=== PATIENT | male | born 1955 | race Caucasian/White ===

== ENCOUNTER 2025-08-28 19:44 | Inpatient (IN) | payer OTHER, MEDICARE, SELFPAY ==
[2025-08-28] VITALS (7 sets, daily range): BP systolic 122–139; BP diastolic 67–80; PULSE 79–106; RESP 18–24; TEMP 37.4–39; O2SAT 92–95; BMI 25.7
--- NOTE | 2025-08-28 20:01 | PD.EDRME ---
Rapid Medical Screening Exam RME Arrival date/time: 08/28/25 19:44 Chief Complaint: Weakness Vital signs: Vital Signs Temperature 102.0 F H 08/28/25 19:58 Pulse Rate 106 H 08/28/25 19:58 Respiratory Rate 24 H 08/28/25 19:58 Blood Pressure 139/80 H 08/28/25 19:58 Pulse Oximetry (%) 92 L 08/28/25 19:58 Oxygen Delivery Method Room Air 08/28/25 19:58 RME Narrative: 70-year-old male with a past medical history of prostate metastatic CA currently on chemo, patient's oncologist is located in [place], he is complaining of lower abdominal pain, nausea vomiting diarrhea and generalized weakness x 2 days. I briefly performed a screening evaluation to initiate work-up and expedite care. Complete history, physical exam, and plan of care is deferred to the provider in the main ED. Exam: Head: Normocephalic, atraumatic. Respiratory: Normal effort. No respiratory distress or accessory muscle use. Neuro: Speech normal. Skin: Warm, dry, normal color. Psych: Pleasant. Normal affect. Cooperative. Clinical Impression: Sepsis
--- NOTE | 2025-08-28 20:03 | EKG_ITS ---
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
--- NOTE | 2025-08-28 20:03 | XR_ITS ---
EXAMINATION: AP chest single view TECHNIQUE: AP portable upright chest single view Date and time: August 28 [id number] hours INDICATIONS: Sepsis protocol sepsis alert today. FINDINGS: Early pneumonia left base Mild enlargement cardiac contour. Median sternotomy wires. No pulmonary edema IMPRESSION: Early pneumonia left base
--- NOTE | 2025-08-28 20:04 | XR_ITS ---
Examination: CT abdomen with intravenous contrast CT pelvis with intravenous contrast 2-D coronal reconstructions 2-D sagittal reconstructions Date and time of exam: August 28, 2025 9:57 p.m., comparison May 15, 2009 INDICATIONS: Incontinence lower abdominal pain chills fever, undergoing chemotherapy, sepsis protocol. CTDI: vol (mGy) 9.81 DLP: (mGycm) 677 Technique: Multiple axial sections of the abdomen and pelvis have been obtained. 64 slice high-resolution scanner used. 3 mm axial sections have been obtained, post intravenous injection 30 cc [id number] 2-D sagittal, coronal reconstructions obtained. Low dose protocols were performed. One or more of the following dose reduction techniques were used; automated exposure control, adjustment of the mA and/or KV according to patient size, use of iterative reconstruction technique. Findings: Multiple liver metastatic lesions, poorly defined on this low contrast study Hepatomegaly 22 cm Spleen is not enlarged Gallbladder is not visualized No pancreatic mass Minimal nodular thickening left adrenal gland Aorta normal size heavy calcification both renal artery origins Perinephric stranding 4.7 cm right renal cyst Mild ascites No pericecal inflammatory change No bowel obstruction Air in the urinary bladder Minimal urinary bladder wall thickening Transverse prostate dimension 5.4 cm Fat-containing inguinal hernias Prominent osteopenia Intact hips IMPRESSION: Hepatomegaly with multiple hepatic metastases Perinephric stranding, consider urinary tract infection No bowel obstruction Mild cystitis pattern
--- NOTE | 2025-08-28 20:15 | PD.EDWEAK ---
ED Weakness RME/HPI General Chief complaint: Weakness Stated complaint: INCONTINENCE, CHILLS, WEAKNESS, LOWER ABD, CHEMO Time Seen by Provider: 08/28/25 20:07 Arrival date/time: 08/28/25 19:44 RME / HPI RME / HPI Narrative: 70-year-old male with a past medical history of prostate metastatic CA currently on chemo, patient's oncologist is located in [place], he is complaining of lower abdominal pain, nausea vomiting diarrhea and generalized weakness x 2 days. I briefly performed a screening evaluation to initiate work-up and expedite care. Complete history, physical exam, and plan of care is deferred to the provider in the main ED. Dr. Matute?s Main ED Evaluation: 70yo male with a history of prostate CA with mets (last chemo on 08/14/25), CAD s/p stent placement, AICD, DM, HTN BIB his presents to the ED for a chief complaint of lower abdominal pain for the last few days. at bedside states she and the patient are visiting from [place]. Patient has had some N/V/D, decreased urination, and increased frequency. No cough. She notes the patient is due for his next dose of chemo on 09/04/25. History is limited due to the patient being a poor historian. Related Data Allergies Allergy/AdvReac Type Severity Reaction Status Date / Time meperidine HCl AdvReac Severe NIGHT Verified 08/28/25 19:47 JOHNSON, ANTSY, COMBATIVE. naproxen AdvReac Unknown Verified 08/28/25 19:47 BLOOD PRESSURE MEDICATION Allergy Uncoded 08/28/25 19:47 Review of Systems Review of Systems ROS Unobtainable: other (limited due to the patient being a poor historian) ED Exam Narrative Physical exam: Generally patient is alert somewhat chronically ill-appearing but in no obvious distress, heart is regular rate and rhythm with occasional extrasystolic beat chest shows a left upper chest AICD to be in place lungs are clear to auscultation equal bilaterally, abdomen is soft bowel sounds present nondistended very mild suprapubic abdominal tenderness without rebound or distention, extremities show no edema, neurologic exam shows Manuel Coma Scale of 15 without focal neurologic deficit Course Course Course Narrative: CXR is ordered for determining the etiology of fever. 2017: Sepsis alert initiated. Orders made at this time are congruent with ED Adult Sepsis Order List. Re-evaluation is to be completed. 2040: NS IVF started. Sepsis re-evaluation pending at the time of admission. Quality Measures Possible source: genitourinary Blood cultures ordered: yes Antibiotic ordered: Yes Pertinent labs: 08/28/25 20:15 Lactic Acid 2.3 H mMol/L (0.4-2.0) Procalcitonin 0.36 ng/ml (0.0-0.49) sepsis Orders Category Date Time Status Bedside Blood Glucose NOW Care 08/28/25 20:03 Active Bedside COVID-19 Antigen Test NOW Care 08/28/25 20:16 Active Bedside Influenza A&B Antigen Test NOW Care 08/28/25 20:[address] Screening NOW Care 08/28/25 20:04 Active Etcher Enameling Q4H START 00 Care 08/28/25 20:03 Active Insert IV NOW Care 08/28/25 20:03 Active Strict Intake and Output Routine Care 08/28/25 20:[address] abdomen pelvis w con Stat Exams 08/28/25 20:04 Ordered XR chest 1V SEPSIS PROTOCOL Stat Exams 08/28/25 20:03 Taken Blood Culture (Lab) Stat Lab 08/28/25 20:15 Received CBC Stat Lab 08/28/25 20:15 Completed Comprehensive Metabolic Panel Stat Lab 08/28/25 20:15 Completed Influenza A & B Rapid Panel Stat Lab 08/28/25 20:31 Completed Lactate (Lactic Acid) Stat Lab 08/28/25 20:15 Results Partial Thromboplastin Time Stat Lab 08/28/25 20:15 Completed Procalcitonin Stat Lab 08/28/25 20:15 Completed Prothrombin Time with INR Stat Lab 08/28/25 20:15 Completed Urinalysis Stat Lab 08/28/25 20:30 Completed Urine Culture Stat Lab 08/28/25 20:03 Received Acetaminophen Tab [Tylenol Tab] Med 08/28/25 20:17 Discontinued 650 mg PO X1 ONE Sodium Chloride 0.9% 1000 ml [Ns] 1,000 ml Med 08/28/25 20:16 Active IV 999 mls/hr cefTRIAXone/D5w 1gm IV premix [Rocephin/D5w 1gm IV Med 08/28/25 21:06 Active premix] 1 gm in 50 ml IV X1 EKG (RT) Stat RT 08/28/25 20:03 Ordered Oxygen Delivery NOW RT 08/28/25 20:03 Active Vital Signs Vital signs: Vital Signs Temperature 102.0 F H 08/28/25 19:58 Pulse Rate 106 H 08/28/25 19:58 Respiratory Rate 24 H 08/28/25 19:58 Blood Pressure 139/80 H 08/28/25 19:58 Pulse Oximetry (%) 92 L 08/28/25 19:58 Oxygen Delivery Method Room Air 08/28/25 19:58 Weakness MDM Narrative MDM Narrative:: Scribe Attestation: 08/28/25 - Christopher, Rand Giron am scribing for and in the presence of Dr. Matute. Patient has 2 SIRS criteria consisting of elevated temperature and heart rate. Septic workup was initiated. Lactic was 2.3. Blood cultures were obtained. Urine is infected. Patient received Rocephin 1 g IV after blood cultures were obtained. Patient is undergoing chemotherapy for stage IV prostate cancer. I discussed this case with the hospitalist. Patient will require admission to the hospital for further treatment and evaluation. I interpreted all labs. COVID and flu swabs were negative. Chest x-ray showed no consolidation with AICD in place. No evidence of pulmonary edema. Patient data External records reviewed:: [facility] previous records (Per chart review, patient has no previous ED visits or admissions to this facility.) Clinical information provided by:: patient and spouse Social determinants that could affect healthcare access:: none Patient has the following chronic illnesses:: prostate CA with mets, CAD s/p stent placement, AICD, DM, HTN How is presenting disease/condition affected by chronic disease/condition?: exacerbated by Evaluation data The following diagnostics were reviewed and interpreted by me:: lab results, radiology exam(s) and EKG tracing(s) Lab and/or radiology exams considered but not ordered:: none Interpretation Summary: See MDM. Medications / Prescriptions Medications or Prescriptions considered but not ordered:: none Medication administrations:: Medication Administration History Sodium Chloride (Ns) 1,000 mls @ 999 mls/hr IV .Q1H1M ONE Stop: 08/28/25 21:16 Last Admin: 08/28/25 20:41 Dose: 999 mls/hr Documented By: ANDREA Ceftriaxone Sodium/Dextrose (Rocephin/D5w 1gm Iv Premix) 1 gm in 50 mls @ 100 mls/hr IV X1 ONE Stop: 08/28/25 21:35 Last Admin: 08/28/25 21:13 Dose: 100 mls/hr Documented By: ANDREA Discontinued Medications Acetaminophen (Acetaminophen 325 Mg Tablet) 650 mg PO X1 ONE Stop: 08/28/25 20:18 Last Admin: 08/28/25 20:40 Dose: 650 mg Documented By: ANDREA see above Consultations Consultation(s) initiated? (list below): Yes Diagnosis Weakness Differential Diagnosis: other (See MDM) Most likely diagnosis given after review of the tests above:: see clinical impression below Admission Indicated Admission indicated?: indicated Admission Request Was there a request for admission?: Yes Admission Attestation Admission request attestation: Discussed case with [] from Hospitalist service regarding admission. Discussed patients ED course, exam findings, labs, and radiology results. The Hospitalist [agrees,declines] to accept the patient for admission. Disposition Plan Disposition Plan: Admit Critical Care Time Critical Care Time Critical Care Time: Yes Total Critical Care Time (min.): 35 Attestation: Excluding other billable procedures Discharge Plan Plan Patient Disposition: Admit Acute Care w/in Hospital Prescriptions/Referrals Referrals: No Primary/Family,Physician [Primary Care Provider] - In 1 week Problem List Clinical Impression: Sepsis, Acute UTI, Prostate cancer metastatic to liver Patient/Caregiver Discharge Instructions Print Language: Romanian Stand Alone Forms: Sarah Award Info., Patient Portal Info Letter
[2025-08-28 20:21] LABS: Lactate (Lactic Acid) 2.3 mMol/L (0.4-2.0)
[2025-08-28 20:25] LABS: Basophils # (Auto) 0.1 Thou/mm3 (0.0-0.2); Basophils % (Auto) 1 % (0-2.5); Eosinophils # (Auto) 0.0 Thou/mm3 (0.0-0.5); Eosinophils % (Auto) 0 % (0-10); Hematocrit 35.4 % (41.0-53.0); Hemoglobin 11.5 g/dL (13.5-16.0); Immature Granulocytes Auto 0.05 Thou/mm3 (0.00-0.00); Lymphocytes # (Auto) 1.4 Thou/mm3 (1.0-4.8); Lymphocytes % (Auto) 14 % (10-50); Mean Corpuscular HGB Conc 32.5 g/dl (31.0-37.0); Mean Corpuscular Hemoglobin 29.3 pg (25.0-35.0); Mean Corpuscular Volume 90 fL (80-100); Monocytes # (Auto) 1.6 Thou/mm3 (0.0-0.8); Monocytes % (Auto) 15 % (0-12); Neutrophils # (Auto) 7.1 Thou/mm3 (1.8-7.7); Neutrophils % (Auto) 69 % (37-80); Nucleated Red Blood Cell # 0.00 Thou/mm3 (0.00-0.00); Nucleated Red Blood Cell % 0 /100 WBC (0); Platelet Count 294 Thou/mm3 (140-440); RDW Standard Deviation 51.8 fL (35.1-43.9); Red Blood Count 3.93 Miln/mm3 (4.50-5.90); White Blood Count 10.3 Thou/mm3 (3.8-10.6)
[2025-08-28 20:34] LABS: Collection Type, Urine Voided
[2025-08-28 20:40] LABS: INR 1.1 (0.9-1.3); Partial Thromboplastin Time 30.5 Seconds (22.0-36.0); Prothrombin Time 11.5 Seconds (9.0-12.2)
[2025-08-28] MEDS: ACETAMINOPHEN 325 MG TABLET 650 MG PO (20:40)
[2025-08-28] MEDS: SODIUM CHLORIDE 0.9% 1000 ML 1,000 ML 999 ML IV (20:41)
[2025-08-28 20:43] LABS: Amorphous Crystals,Urine Present (Absent); Bacteria,Urine 4+; Bilirubin,Urine Negative (Negative); Blood,Urine 3+ (Negative); Clarity,Urine Turbid (Clear/Hazy); Color,Urine Yellow (Lt Yel-Yel); Glucose, Urine Negative (Negative); Hyaline Casts,Urine 1 /hpf (0-1); Ketones,Urine Negative (Negative); Leukocyte Esterase,Urine Positive (Negative); Nitrite,Urine Negative (Negative); PH,Urine 6.0 (5.0-7.0); Protein,Urine 2+ (Neg - Trace); RBC,Urine 145 /hpf (0-3); Specific Gravity,Urine 1.020 (1.001-1.035); Squamous Epithelial Cell,Urine 1 /hpf (0-5); Urobilinogen,Urine Negative mg/dL (0.0-1.0); WBC,Urine 1855 /hpf (0-5)
[2025-08-28 20:46] LABS: Alanine Aminotransferase 28 U/L (10-49); Albumin, Serum 5.1 gm/dL (3.4-4.8); Albumin/Globulin Ratio 2.1 (1.2-2.2); Alkaline Phosphatase 112 U/L (46-116); Anion Gap 13 (7-16); Aspartate Amino Transferase 54 U/L (0-34); BUN/Creatinine Ratio 14 Ratio (12-20); Bilirubin,Total 0.9 mg/dL (0.3-1.2); Blood Urea Nitrogen 23 mg/dL (9-23); Calcium 9.9 mg/dL (8.3-10.6); Calcium (Corrected) 9.9 mg/dL (8.5-10.1); Carbon Dioxide 23.2 mMol/L (20.0-31.0); Chloride 99 mMol/L (98-107); Creatinine (Component) 1.6 mg/dL (0.6-1.3); Estimated Creatinine Clearance 49.9 mL/min (>60); Globulin 2.4 gm/dL (2.3-3.5); Glucose 181 mg/dL (74-106); Osmolality,Calculated 278 (275-295); Potassium 4.5 mMol/L (3.4-5.1); Procalcitonin 0.36 ng/ml (0.0-0.49); Sodium 135 mMol/L (136-145); Total Protein 7.5 gm/dL (5.7-8.2); eGFR 46 See Note
[2025-08-28 21:06] LABS: Influenza A Ag Negative; Influenza B Ag Negative
[2025-08-28] MEDS: cefTRIAXone/D5w 1gm IV premix 1 GM/50 ML BAG IV (21:13)
--- NOTE | 2025-08-28 22:02 | ESHP_ITS ---
Documentation for date of: 08/28/25 [facility] History of Present Illness History of present illness: 70yo male with a history of prostate CA with mets (last chemo on 08/14/25), CAD s/p stent placement, AICD, DM, HTN BIB his presents to the ED for a chief complaint of lower abdominal pain for the last 2 days. Admitted for sepsis workup most likely 2/2 UTI. ED Course Summary Vitals: BP 139/80 HR 106 RR 24 T 102F O2 sat 92% RA Labs: Hgb 11.5 Coag wnl Na 135 BUN 23 Cr 1.6 glucose 181 lactic acid 2.3 AST 54. UA turbid protein +2 blood +3 RBC 145 WBC 1855 bacteria +4 Imaging: CXR early pneumonia left base. CTAP Mild cystitis pattern, perinephric stranding, hepatomegaly with multiple hepatic metastases Treatment: Ceftriaxone 1 g, NS 1L, tylenol 650mg POx1 Initial evaluation was done with patient's in the room. His main symptoms are weakness and abdominal pain. States he has had no pain with urination but has been incontinent recently. His urine is foul smelling, but the foul smell has been constant since starting chemotherapy. His mentions that sometimes he says confused things and trouble walking on his own - she demonstrates by mimicking a wide based gait. It was difficult for her to describe his confusion other than weirdness but she thinks it has to do with his trouble hearing. Sometimes he gets visual disturbances described as having watery eyes/blurry vision. Had one UTI in the past after being catheterized for multiple days. 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 Patricio Matute. 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 Exam Vital Signs Temp Pulse Resp BP Pulse Ox O2 Del Method O2 Flow Rate 102.2 F H 105 H 21 H 139/80 H 94 L Room Air 2 08/28/25 20:40 08/28/25 20:31 08/28/25 20:31 08/28/25 19:58 08/28/25 20:31 08/28/25 19:58 08/28/25 20:31 Narrative Exam GENERAL APPEARANCE: AOx3. Sitting back diagonally, NAD, activity normal for age, well developed/ well nourished, no cyanosis, pallor, or diaphoresis. HEENT: Normocephalic atraumatic, no facial trauma, neck is supple. Lids/conjunctiva normal. Mucous membranes moist, nares normal, lips/teeth normal uvula midline without oral pharyngeal erythema, exudate or swelling TMs normal bilaterally. No lymphangitis/lymphedema. CARDIAC: Regular rate and rhythm, S1+S2 heard. No rubs, or gallops noted. + Systolic ejection murmur RESPIRATORY: respiratory effort normal, speaks in full sentences, no tripod position, no accessory muscle use. Lungs clear to auscultation without rhonchi, wheezes, rales ABDOMINAL: NBS. Soft, ND/NT. No evidence of fluid wave. No pulsatile masses on exam, rebound tenderness, Sexton sign or pain over Mcburney's point. MUSCLES/EXTREMITIES: No abnormal range of motion, no swelling. DERM: Warm, pink and dry. No rashes, dermatoses, petechiae or lesions. NEUROLOGICAL: Speech is clear and appropriate. Normal level of consciousness. Gait and coordination are normal. 5/5 strength in all extremities. PSYCH: Normal mood and affect. Judgement/competence is appropriate Results: Labs 08/29/25 02:00 08/28/25 20:15 Labs: Short CBC 08/28/25 Range/Units 20:15 WBC 10.3 (3.8-10.6) Thou/mm3 Hgb 11.5 L (13.5-16.0) g/dL Hct 35.4 L (41.0-53.0) % Plt Count 294 (140-440) Thou/mm3 BMP 08/28/25 20:15 Sodium 135 L Potassium 4.5 Chloride 99 Carbon Dioxide 23.2 BUN 23 Creatinine 1.6 H Glucose 181 H Calcium 9.9 Liver Function 08/28/25 Range/Units 20:15 Total Bilirubin 0.9 (0.3-1.2) mg/dL AST 54 H (0-34) U/L ALT 28 (10-49) U/L Alkaline Phosphatase 112 (46-116) U/L Albumin 5.1 H (3.4-4.8) gm/dL Urine 08/28/25 Range/Units 20:30 Urine Color Yellow (Lt Yel-Yel) Urine Clarity Turbid A (Clear/Hazy) Urine pH 6.0 (5.0-7.0) Ur Specific [place] 1.020 (1.001-1.035) Urine Protein 2+ A (Neg - Trace) Urine Glucose (UA) Negative (Negative) Quality Measures Quality Measures sepsis Current suspected stage: ruled out Possible source: genitourinary Blood cultures ordered: yes Antibiotic ordered: Yes Advance care planning discussed with:: patient and spouse Medications Home Medications and Allergies Allergies Allergy/AdvReac Type Severity Reaction Status Date / Time meperidine HCl AdvReac Severe NIGHT Verified 08/28/25 19:47 JOHNSON, ANTSY, COMBATIVE. naproxen AdvReac Unknown Verified 08/28/25 19:47 BLOOD PRESSURE MEDICATION Allergy Uncoded 08/28/25 19:47 Visit Medications Acetaminophen (Acetaminophen 325 Mg Tablet) 650 mg PO Q6H PRN PRN Reason: Fever >100.4 or pain 1-3 Stop: 09/27/25 21:46 Dextrose (Dextrose 50%-Water Inj 50 Ml Syringe) 25 ml IV Q15MIN PRN PRN Reason: BG 50-70 responsive npo pt Stop: 09/27/25 21:51 Dextrose (Dextrose 50%-Water Inj 50 Ml Syringe) 50 ml IV Q15MIN PRN PRN Reason: BG <50 OR BG <70 & pt unresponsive Stop: 09/27/25 21:51 Docusate Sodium (Docusate Sod 100 Mg Capsule) 100 mg PO QDAY BUNNY; Protocol Stop: 09/28/25 08:59 Glucagon (Glucagon Inj 1 Mg Vial) 1 mg IM Q15MIN PRN PRN Reason: BG <70, and no IV access Heparin Sodium (Porcine) (Heparin Sod Inj 5000 Unit/Ml Vial) 5,000 unit SC Q12HR BUNNY Stop: 09/12/25 08:59 Lactated Ringer's (Lactated Ringers) 1,000 mls @ 75 mls/hr IV .[id number] BUNNY Stop: 09/27/25 21:59 Lactated Ringer's (Lactated Ringers) 1,000 mls @ 999 mls/hr IV .Q1H1M ONE Stop: 08/28/25 22:59 Insulin Human Lispro (Insulin Lispro (Admelog) 1 Unit/0.01 Ml Unit) 0 unit SC ACHS BUNNY; Protocol Stop: 09/28/25 07:29 Ondansetron HCl (Ondansetron Inj 2 Mg/Ml Inj 2 Ml) 4 mg IVP Q6H PRN; Protocol PRN Reason: NAUSEA OR VOMITING Stop: 09/27/25 21:51 Pantoprazole Sodium (Pantoprazole 40 Mg Tablet) 40 mg PO QDAY [facility] Stop: 09/28/25 08:59 Discontinued Medications Acetaminophen (Acetaminophen 325 Mg Tablet) 650 mg PO X1 ONE Stop: 08/28/25 20:18 Last Admin: 08/28/25 20:40 Dose: 650 mg Sodium Chloride (Ns) 1,000 mls @ 999 mls/hr IV .Q1H1M ONE Stop: 08/28/25 21:16 Last Infusion: 08/28/25 21:49 Dose: Infused Ceftriaxone Sodium/Dextrose (Rocephin/D5w 1gm Iv Premix) 1 gm in 50 mls @ 100 mls/hr IV X1 ONE Stop: 08/28/25 21:35 Last Infusion: 08/28/25 21:49 Dose: Infused Assessment & Plan Plan 70yo male with a history of prostate CA with mets (last chemo on 08/14/25), CAD s/p stent placement, AICD, DM, HTN BIB his presents to the ED for a chief complaint of lower abdominal pain for the last 2 days. Admitted for sepsis workup most likely 2/2 UTI. #Sepsis #UTI #Lactic acidosis Patient came in and found to have 2 or more SIRS criteria and was evaluated for sepsis. However, based upon further work-up, sepsis was ruled out. On admission HR 106 RR 24 T 102F, has since resolved to HR 86 RR 18 T 99F. Lactic acid 2.3 --> 1.2. AST 54. UA turbid protein +2 blood +3 RBC 145 WBC 1855 bacteria +4. CTAP Mild cystitis pattern, perinephric stranding. CXR also shows early pneumonia left base, no crackles heard on exam, PNA less likely. Hx of UTI from foely catheterization, patient requests no [place]ak. Patient denies dysuria, but endorses incontinence and midline abdominal pain; however, denies pain on phyiscal exam. Plan: -FUP Cocci:___ -FUP urine cx:___ -FUP blood cx:___ -Bladder scan PRN -Zosyn 3.375g IV Q8HR (08/29 - -IVF LR maintenance #ZANDER BUN 23 Cr 1.6, baseline 1.1. Most likely due to poor PO intake/volume depletion. Plan: -IVF -FUP AM renal panel #C/f NPH Patient has a wide based gait per his , incontinence, and at times can be intermittently confusing. These symptoms have all been for a few months. Plan: -FUP MRI in AM -MRI screening due to AICD -PT referral:___ #Hx of DM insulin dependent 30 units of lantus at home with 2000mg of metformin Plan: -ISS step 2 -ACHS glucose checks #Hx of stage IV prostate cancer #mets to liver and coccyx Received 4/6 doses of chemotherapy so far. Diagnosed in April 2025. Patient not reporting any pain at the time. Care is based in [place]. PLan: -CTM for pain #Hx of HTN Patient taking home losartan, unsure of dose. Plan: -Pending med rec restart home meds #Hx of CAD s/p stent #AICD Patient no longer taking aspirin, and unable to tolerate statins due to muscle pains. Plan: -Pending med rec -Obtain daily weights -Strict I/Os Health Maintenance: Code status: Full DVT prophylaxis: Heparin subq GI prophylaxis: Diet: Carb consistent low [place]: Declined Lines: PIV Supplemental O2: NC Disposition: Tele for sepsis work up 2/2 UTI Patient seen and reviewed with attending Dr. Dias. Note written by Rishi Argueta MD PGY-1
[2025-08-28] MEDS: RINGERS LACTATED 1000 ML 1,000 ML 999 ML IV (22:15)
[2025-08-28] MEDS: RINGERS LACTATED 1000 ML 1,000 ML 75 ML IV (22:16)
[2025-08-28 23:19] LABS: Reflex Lactate? Y
[2025-08-28] MEDS: PIPER/TAZO 3.375 GM PREMIX 3.375 GM/50 ML BAG IV (23:25)
[2025-08-28 23:34] LABS: Lactic Acid, 3 HR 1.8 mMol/L (0.4-2.0)
[2025-08-29] VITALS (16 sets, daily range): BP systolic 106–155; BP diastolic 60–88; PULSE 81–106; RESP 18–97; TEMP 36.7–38.7; O2SAT 91–97
[2025-08-29 02:26] LABS: Lactate (Lactic Acid) 1.2 mMol/L (0.4-2.0)
[2025-08-29 02:37] LABS: Basophils # (Auto) 0.1 Thou/mm3 (0.0-0.2); Basophils % (Auto) 1 % (0-2.5); Eosinophils # (Auto) 0.0 Thou/mm3 (0.0-0.5); Eosinophils % (Auto) 0 % (0-10); Hematocrit 29.9 % (41.0-53.0); Hemoglobin 9.7 g/dL (13.5-16.0); Immature Granulocytes Auto 0.05 Thou/mm3 (0.00-0.00); Lymphocytes # (Auto) 1.5 Thou/mm3 (1.0-4.8); Lymphocytes % (Auto) 17 % (10-50); Mean Corpuscular HGB Conc 32.4 g/dl (31.0-37.0); Mean Corpuscular Hemoglobin 29.4 pg (25.0-35.0); Mean Corpuscular Volume 91 fL (80-100); Monocytes # (Auto) 1.5 Thou/mm3 (0.0-0.8); Monocytes % (Auto) 17 % (0-12); Neutrophils # (Auto) 5.9 Thou/mm3 (1.8-7.7); Neutrophils % (Auto) 65 % (37-80); Nucleated Red Blood Cell # 0.00 Thou/mm3 (0.00-0.00); Nucleated Red Blood Cell % 0 /100 WBC (0); Platelet Count 227 Thou/mm3 (140-440); RDW Standard Deviation 52.6 fL (35.1-43.9); Red Blood Count 3.30 Miln/mm3 (4.50-5.90); White Blood Count 9.1 Thou/mm3 (3.8-10.6)
[2025-08-29 03:15] LABS: Alanine Aminotransferase 21 U/L (10-49); Albumin, Serum 4.1 gm/dL (3.4-4.8); Albumin/Globulin Ratio 2.0 (1.2-2.2); Alkaline Phosphatase 92 U/L (46-116); Anion Gap 11 (7-16); Aspartate Amino Transferase 34 U/L (0-34); BUN/Creatinine Ratio 14 Ratio (12-20); Bilirubin,Total 0.9 mg/dL (0.3-1.2); Blood Urea Nitrogen 21 mg/dL (9-23); Calcium 9.0 mg/dL (8.3-10.6); Calcium (Corrected) 9.0 mg/dL (8.5-10.1); Carbon Dioxide 24.4 mMol/L (20.0-31.0); Chloride 103 mMol/L (98-107); Creatinine (Component) 1.5 mg/dL (0.6-1.3); Estimated Creatinine Clearance 53.3 mL/min (>60); Globulin 2.1 gm/dL (2.3-3.5); Glucose 110 mg/dL (74-106); Magnesium 1.7 mg/dL (1.6-2.6); Osmolality,Calculated 279 (275-295); Phosphorous 3.8 mg/dL (2.4-5.1); Potassium 4.1 mMol/L (3.4-5.1); Sodium 138 mMol/L (136-145); Total Protein 6.2 gm/dL (5.7-8.2); eGFR 50 See Note
[2025-08-29] MEDS: ACETAMINOPHEN 325 MG TABLET 650 MG PO ×2 (03:53→23:30)
[2025-08-29] MEDS: PIPER/TAZO 3.375 GM PREMIX 3.375 GM/50 ML BAG IV ×3 (07:03→22:06)
--- NOTE | 2025-08-29 07:59 | ESPR_ITS ---
<Statement entered by Kosta Del Castillo MD - 09/04/25 15:19> I reviewed above note and agree with findings and plans. I have also personally examined the patient with medicine team and went over assessment and plan with medical team including physician internist and resident physician. <Statement entered by Re Klein MD - 08/30/25 20:46> Patient was seen and examined by me personally. I have directly supervised and reviewed documentation by the team resident and agree with its findings. ------- Plan of care was discussed with the attending, Dr. Abundio Klein, PGY-2 Documentation for date of: 08/29/25 Subjective Subjective Interval history: pt seen and examined at bedside pt noted to have urinary incontinence s/p x1 straight cath, ok for nowak if retaining again this evening ct head nl, no hydrocephalus noted. Exam Vital Signs Temp Pulse Resp BP Pulse Ox O2 Del Method O2 Flow Rate 98.9 F 81 22 H 153/88 H 97 Nasal Cannula 1 08/29/25 04:53 08/29/25 06:31 08/29/25 06:31 08/29/25 04:00 08/29/25 04:00 08/29/25 00:11 08/29/25 00:11 Narrative Exam GENERAL: no acute distress, AAO x3, comfortably laying in bed HEENT: Head AT/ NC. Mucous membranes moist. PERRL. NECK: Supple, no lymphadenopathy, no carotid bruits. CARDIOVASCULAR: RRR. Normal S1/S2,systolic murmor No pitting edema of bilateral LEs. RESPIRATORY: CTAB. No wheezing, rhonchi, crackles. GASTROINTESTINAL: Abdomen soft, non tender no palpable masses. Bowel sounds present MUSCULOSKELETAL:? No cyanosis or edema, no visible joint swelling. NEUROLOGICAL: CN II-XII grossly intact. No focal deficits. Sensation intact, symmetric. PSYCHIATRIC: Awake and alert, not agitated, normal mood and affect. SKIN: No obvious rashes, no jaundice, normal turgor. Objective Labs 08/29/25 02:00 08/29/25 02:00 Labs: Laboratory Results - last 24 hr 08/28/25 08/28/25 08/28/25 20:15 20:30 20:31 WBC 10.3 RBC 3.93 L Hgb 11.5 L Hct 35.4 L MCV 90 MCH 29.3 MCHC 32.5 RDW Std Deviation 51.8 H Plt Count 294 Neut % (Auto) 69 Lymph % (Auto) 14 [place] % (Auto) 15 H Eos % (Auto) 0 Baso % (Auto) 1 Neut # (Auto) 7.1 Lymph # (Auto) 1.4 [place] # (Auto) 1.6 H Eos # (Auto) 0.0 Baso # (Auto) 0.1 Immature Gran # (Auto) 0.05 H Absolute Nucleated RBC 0.00 Immature Gran % 1 H Nucleated RBC % 0 PT 11.5 INR 1.1 APTT 30.5 Sodium 135 L Potassium 4.5 Chloride 99 Carbon Dioxide 23.2 Anion Gap 13 BUN 23 Creatinine 1.6 H Estim Creat Clear Calc 49.9 L eGFR 46 L BUN/Creatinine Ratio 14 Glucose 181 H Calculated Osmolality 278 Lactic Acid 2.3 H Calcium 9.9 Corrected Calcium 9.9 Phosphorus Magnesium Total Bilirubin 0.9 AST 54 H ALT 28 Alkaline Phosphatase 112 Total Protein 7.5 Albumin 5.1 H Globulin 2.4 Albumin/Globulin Ratio 2.1 Procalcitonin 0.36 Ur Collection Type Voided Urine Color Yellow Urine Clarity Turbid A Urine pH 6.0 Ur Specific [place] 1.020 Urine Protein 2+ A Urine Glucose (UA) Negative Urine Ketones Negative Urine Blood 3+ A Urine Nitrite Negative Urine Bilirubin Negative Urine Urobilinogen (Auto) Negative Ur Leukocyte Esterase Positive Urine RBC 145 H Urine WBC 1855 H Ur Squamous Epith Cells 1 Amorphous Crystals Present A Urine Bacteria 4+ A Hyaline Casts 1 Influenza A (Rapid) Negative Influenza B (Rapid) Negative 08/28/25 08/29/25 23:28 02:00 WBC 9.1 RBC 3.30 L Hgb 9.7 L Hct 29.9 L MCV 91 MCH 29.4 MCHC 32.4 RDW Std Deviation 52.6 H Plt Count 227 D Neut % (Auto) 65 Lymph % (Auto) 17 [place] % (Auto) 17 H Eos % (Auto) 0 Baso % (Auto) 1 Neut # (Auto) 5.9 Lymph # (Auto) 1.5 [place] # (Auto) 1.5 H Eos # (Auto) 0.0 Baso # (Auto) 0.1 Immature Gran # (Auto) 0.05 H Absolute Nucleated RBC 0.00 Immature Gran % 1 H Nucleated RBC % 0 PT INR APTT Sodium 138 Potassium 4.1 Chloride 103 Carbon Dioxide 24.4 Anion Gap 11 BUN 21 Creatinine 1.5 H Estim Creat Clear Calc 53.3 L eGFR 50 L BUN/Creatinine Ratio 14 Glucose 110 H D Calculated Osmolality 279 Lactic Acid 1.8 1.2 Calcium 9.0 Corrected Calcium 9.0 Phosphorus 3.8 Magnesium 1.7 Total Bilirubin 0.9 AST 34 ALT 21 Alkaline Phosphatase 92 D Total Protein 6.2 Albumin 4.1 D Globulin 2.1 L Albumin/Globulin Ratio 2.0 Procalcitonin Ur Collection Type Urine Color Urine Clarity Urine pH Ur Specific [place] Urine Protein Urine Glucose (UA) Urine Ketones Urine Blood Urine Nitrite Urine Bilirubin Urine Urobilinogen (Auto) Ur Leukocyte Esterase Urine RBC Urine WBC Ur Squamous Epith Cells Amorphous Crystals Urine Bacteria Hyaline Casts Influenza A (Rapid) Influenza B (Rapid) Quality Measures Quality Measures sepsis Current suspected stage: sepsis Possible source: genitourinary Blood cultures ordered: yes Antibiotic ordered: Yes Advance care planning discussed with:: patient, spouse and child Assessment & Plan Assessment Current Active Medications: Generic Name Dose Route Start Last Admin Trade Name Freq PRN Reason Stop Dose Admin Acetaminophen 650 mg 08/28/25 21:47 08/29/25 03:53 Acetaminophen 325 Mg Tablet PO 09/27/25 21:46 650 mg Q6H PRN Administration Fever >100.4 or pain 1-3 Dextrose 25 ml 08/28/25 21:52 Dextrose 50%-Water Inj 50 Ml Syringe IV 09/27/25 21:51 Q15MIN PRN BG 50-70 responsive npo pt Dextrose 50 ml 08/28/25 21:52 Dextrose 50%-Water Inj 50 Ml Syringe IV 09/27/25 21:51 Q15MIN PRN BG <50 OR BG <70 & pt unresponsive Docusate Sodium 100 mg 08/29/25 09:00 Docusate Sod 100 Mg Capsule PO 09/28/25 08:59 QDAY [facility] Protocol Glucagon 1 mg 08/28/25 21:52 Glucagon Inj 1 Mg Vial IM Q15MIN PRN BG <70, and no IV access Heparin Sodium (Porcine) 5,000 unit 08/29/25 09:00 Heparin Sod Inj 5000 Unit/Ml Vial SC 09/12/25 08:59 Q12HR [facility] Lactated Ringer's 1,000 mls @ 75 mls/hr 08/28/25 22:00 08/28/25 23:25 Lactated Ringers IV 09/27/25 21:59 75 mls/hr .[id number] [facility] Infusion Piperacillin/Tazobactam/Dextrose 3.375 gm in 50 mls @ 12.5 mls/hr 08/28/25 06:15 08/29/25 07:03 Zosyn IV 09/04/25 06:14 12.5 mls/hr Q8HR [facility] Administration Protocol Insulin Human Lispro 0 unit 08/29/25 07:30 Insulin Lispro (Admelog) 1 Unit/0.01 Ml Unit SC 09/28/25 07:29 ACHS [facility] Protocol Ondansetron HCl 4 mg 08/28/25 21:52 Ondansetron Inj 2 Mg/Ml Inj 2 Ml IVP 09/27/25 21:51 Q6H PRN NAUSEA OR VOMITING Protocol Pantoprazole Sodium 40 mg 08/29/25 09:00 Pantoprazole 40 Mg Tablet PO 09/28/25 08:59 QDAY [facility] Plan 70yo male with a history of prostate CA with mets (last chemo on 08/14/25), CAD s/p stent placement, AICD, DM, HTN BIB his presents to the ED for a chief complaint of lower abdominal pain for the last 2 days. Admitted for sepsis workup most likely 2/2 UTI. Ucx prelim with GNR, on zosyn, and acute urinary retention. #Sepsis #UTI #Lactic acidosis Patient came in and found to have 2 or more SIRS criteria and was evaluated for sepsis. However, based upon further work-up, sepsis was ruled out. On admission HR 106 RR 24 T 102F, has since resolved to HR 86 RR 18 T 99F. Lactic acid 2.3 --> 1.2. AST 54. UA turbid protein +2 blood +3 RBC 145 WBC 1855 bacteria +4. CTAP Mild cystitis pattern, perinephric stranding. CXR also shows early pneumonia left base, no crackles heard on exam, PNA less likely. Hx of UTI from foely catheterization, patient requests no nowak. Patient denies dysuria, but endorses incontinence and midline abdominal pain; however, denies pain on phyiscal exam. Plan: -Cocci negative -URine with GNR pending speciation -Blood cx pending -Zosyn 3.375g IV Q8HR (08/29 - -IVF LR maintenance -APAP 650 po for fever or pain #ZANDER, prerenal suspected BUN 23 Cr 1.6, baseline 1.1. Most likely due to poor PO intake/volume depletion. Plan: -IVF -FUP AM renal panel -encourage po intake #Acute urinary retention #Hx of stage IV prostate cancer #mets to liver and coccyx Received 4/6 doses of chemotherapy so far. Diagnosed in April 2025. Patient not reporting any pain at the time. Care is based in [place] at [place] last chemo dose 08/14, pt gets chemo q3 weeks, was originally scheduled for chemo on 09/04, but deferred given current hospitalization PLan: -CTM for pain -Bladder scan PRN -OK for nowak if retains again tonight, s/p x1 straight cath -restart home tamsulosin 0.4 mg po qd #concern for NPH- ruled out Patient has a wide based gait per his , incontinence, and at times can be intermittently confusing. These symptoms have all been for a few months. Plan: - CT head, Negative for acute hemorrhage, mass effect or midline shift, ventricles normal size. #Hx of DM insulin dependent 30 units of lantus at home with 2000mg of metformin Plan: -ISS step 2 -ACHS glucose checks #Hx of HTN Plan: - cont home amlodipine 5 mg - hold home losartan 100mg qd in setting of ZANDER #Hx of CAD s/p stent #AICD Patient no longer taking aspirin, and unable to tolerate statins due to muscle pains. Plan: -Obtain daily weights -Strict I/Os Afib? on amiodorone - cont home amiodoron 100mg qd #Gout - hold home allopurinol in setting of zander (see above) Health Maintenance: Code status: Full DVT prophylaxis: Heparin subq GI prophylaxis: protonix 40 qd Diet: Carb consistent low Nowak: s/p x1 straight cath. consider nowak if retaining again tonight. bladder scan prn Lines: PIV Supplemental O2: NC Disposition: Tele for sepsis work up 2/2 UTI Plan discussed with my attending Dr. Del Castillo and my senior Dr. Ernie Diez MD PGY1
[2025-08-29] MEDS: PANTOPRAZOLE 40 MG TABLET PO (08:11)
[2025-08-29] MEDS: HEPARIN SOD INJ 5000 UNIT/ML VIAL SC ×2 (08:11→22:05)
[2025-08-29] MEDS: DOCUSATE SOD 100 MG CAPSULE PO (08:11)
[2025-08-29] MEDS: RINGERS LACTATED 1000 ML 1,000 ML 75 ML IV (11:44)
--- NOTE | 2025-08-29 11:48 | PC.SS ---
Patient is alert/oriented. Patient was able to verify demographics. Patient is here visiting. He is from [place] and has another home in [place]. Patient's at bedside and plans on returning. Patient is independent with ADL's. Admitted for sepsis/UTI. Patient has hx: prostate cancer. Notes indicate last chemo was on 08/14/2025. Patient Oncology is in [place]. Patient pharmacy: [facility]. PCP: [place] [facility] medical decision maker: Gillian Alfred, , Daughter, Miri, lives local, alternate [phone] Transportation: family
--- NOTE | 2025-08-29 13:45 | PC.PT ---
PT eval only. Patient is xI with bed mobility, transfers, and ambulation with the IV pole. Patient is safe to ambulate to the bathroom and in the halls with 1 staff for IV management. RN made aware.
[2025-08-29 14:33] LABS: Cocci Serology, IgM Negative (Negative)
--- NOTE | 2025-08-29 18:12 | XR_ITS ---
Examination: CT brain head without contrast. 2-D sagittal coronal reconstructions Date and time of exam: August 29, 2025, 1908 hours INDICATIONS: Sepsis altered mental status beginning 1 week ago CTDI: vol (mGy): 51.2 DLP: (mGycm): 1078 Technique: Multiple CT axial sections of the brain have been obtained, 5 mm slice thickness. Contrast has not been administered. 2-D sagittal, coronal reconstructions have been obtained Low dose protocols were performed. One or more of the following dose reduction techniques were used; automated exposure control, adjustment of the mA and/or KV according to patient size, use of iterative reconstruction technique. Findings: No significant ventricular enlargement. Intra-axial or extra-axial hemorrhage density is not seen. No mass effect or midline shift Basal cisterns are not remarkable. Fourth ventricle is midline. Cranial vault intact. Impression: Negative for acute hemorrhage, mass effect or midline shift Ventricles are not enlarged Advise clinical correlation and follow-up accordingly
--- NOTE | 2025-08-29 20:41 | XR_ITS ---
EXAMINATION: Right hand fifth digit 2 views TECHNIQUE: 1. AP lateral right hand fifth digit 2 views Date and time: August 29, 2025, 0951 hours INDICATION: Patient fell today with injury to the hand, fifth digit pain. FINDINGS: Fusion at the interphalangeal joint fifth digit No fracture No dislocation IMPRESSION: No acute fracture
--- NOTE | 2025-08-29 21:03 | PD.RESHP ---
Documentation for date of: 08/29/25 Exam Vital Signs Temp Pulse Resp BP Pulse Ox O2 Del Method O2 Flow Rate 98.0 F 86 20 155/88 H 94 L Nasal Cannula 2 08/29/25 16:00 08/29/25 16:00 08/29/25 16:00 08/29/25 16:00 08/29/25 16:00 08/29/25 16:00 08/29/25 16:00 Results: Labs 08/29/25 02:00 08/29/25 02:00 Labs: Short CBC 08/29/25 Range/Units 02:00 WBC 9.1 (3.8-10.6) Thou/mm3 Hgb 9.7 L (13.5-16.0) g/dL Hct 29.9 L (41.0-53.0) % Plt Count 227 D (140-440) Thou/mm3 BMP 08/29/25 02:00 Sodium 138 Potassium 4.1 Chloride 103 Carbon Dioxide 24.4 BUN 21 Creatinine 1.5 H Glucose 110 H D Calcium 9.0 Liver Function 08/29/25 Range/Units 02:00 Total Bilirubin 0.9 (0.3-1.2) mg/dL AST 34 (0-34) U/L ALT 21 (10-49) U/L Alkaline Phosphatase 92 D (46-116) U/L Albumin 4.1 D (3.4-4.8) gm/dL Quality Measures Quality Measures sepsis Possible source: genitourinary Blood cultures ordered: yes Medications Home Medications and Allergies Home Medications ?Medication ?Instructions ?Recorded ?Confirmed ?Type ABIRATERONE 1,000 mg PO .AM 08/29/25 08/29/25 History METFORMIN ER 500 mg PO BID 08/29/25 08/29/25 History allopurinol 100 mg tablet 100 mg PO QDAY 08/29/25 08/29/25 History amiodarone 100 mg tablet 100 mg PO QDAY 08/29/25 08/29/25 History amlodipine 5 mg tablet 5 mg PO QDAY 08/29/25 08/29/25 History bicalutamide 50 mg tablet 50 mg PO QDAY 08/29/25 08/29/25 History insulin glargine 100 unit/mL 30 unit subcut QDAY 08/29/25 08/29/25 History subcutaneous solution (Lantus U-100 Insulin) losartan 100 mg tablet 100 mg PO QDAY 08/29/25 08/29/25 History pantoprazole 20 mg tablet,delayed 20 mg PO QAM 08/29/25 08/29/25 History release tamsulosin 0.4 mg capsule 0.4 mg PO QDAY 08/29/25 08/29/25 History Allergies Allergy/AdvReac Type Severity Reaction Status Date / Time meperidine HCl AdvReac Severe NIGHT Verified 08/28/25 19:47 JOHNSON, ANTSY, COMBATIVE. naproxen AdvReac Unknown Verified 08/28/25 19:47 BLOOD PRESSURE MEDICATION Allergy Uncoded 08/28/25 19:47 Visit Medications Acetaminophen (Acetaminophen 325 Mg Tablet) 650 mg PO Q6H PRN PRN Reason: Fever >100.4 or pain 1-3 Stop: 09/27/25 21:46 Last Admin: 08/29/25 03:53 Dose: 650 mg Amiodarone HCl (Amiodarone Hcl 200 Mg Tablet) 100 mg PO QDAY [facility] Stop: 09/29/25 08:59 Amlodipine Besylate (Amlodipine Besylate 5 Mg Tablet) 5 mg PO QDAY [facility] Stop: 09/28/25 20:29 Dextrose (Dextrose 50%-Water Inj 50 Ml Syringe) 25 ml IV Q15MIN PRN PRN Reason: BG 50-70 responsive npo pt Stop: 09/27/25 21:51 Dextrose (Dextrose 50%-Water Inj 50 Ml Syringe) 50 ml IV Q15MIN PRN PRN Reason: BG <50 OR BG <70 & pt unresponsive Stop: 09/27/25 21:51 Docusate Sodium (Docusate Sod 100 Mg Capsule) 100 mg PO QDAY [facility]; Protocol Stop: 09/28/25 08:59 Last Admin: 08/29/25 08:11 Dose: 100 mg Glucagon (Glucagon Inj 1 Mg Vial) 1 mg IM Q15MIN PRN PRN Reason: BG <70, and no IV access Heparin Sodium (Porcine) (Heparin Sod Inj 5000 Unit/Ml Vial) 5,000 unit SC Q12HR [facility] Stop: 09/12/25 08:59 Last Admin: 08/29/25 08:11 Dose: 5,000 unit Lactated Ringer's (Lactated Ringers) 1,000 mls @ 75 mls/hr IV .[id number] [facility] Stop: 09/27/25 21:59 Last Admin: 08/29/25 11:44 Dose: 75 mls/hr Piperacillin/Tazobactam/Dextrose (Zosyn) 3.375 gm in 50 mls @ 12.5 mls/hr IV Q8HR [facility]; Protocol Stop: 09/04/25 06:14 Last Admin: 08/29/25 14:26 Dose: 12.5 mls/hr Insulin Human Lispro (Insulin Lispro (Admelog) 1 Unit/0.01 Ml Unit) 0 unit SC ACHS [facility]; Protocol Stop: 09/28/25 07:29 Last Admin: 08/29/25 17:14 Dose: Not Given Ondansetron HCl (Ondansetron Inj 2 Mg/Ml Inj 2 Ml) 4 mg IVP Q6H PRN; Protocol PRN Reason: NAUSEA OR VOMITING Stop: 09/27/25 21:51 Pantoprazole Sodium (Pantoprazole 40 Mg Tablet) 40 mg PO QDAY [facility] Stop: 09/28/25 08:59 Last Admin: 08/29/25 08:11 Dose: 40 mg Tamsulosin HCl (Tamsulosin Hcl 0.4 Mg Capsule) 0.4 mg PO QDAY [facility] On Hold: 08/29/25 20:39 Stop: 09/28/25 20:29 Discontinued Medications Acetaminophen (Acetaminophen 325 Mg Tablet) 650 mg PO X1 [facility] Stop: 08/28/25 20:18 Last Admin: 08/28/25 20:40 Dose: 650 mg Sodium Chloride (Ns) 1,000 mls @ 999 mls/hr IV .Q1H1M [facility] Stop: 08/28/25 21:16 Last Infusion: 08/28/25 21:49 Dose: Infused Ceftriaxone Sodium/Dextrose (Rocephin/D5w 1gm Iv Premix) 1 gm in 50 mls @ 100 mls/hr IV X1 [facility] Stop: 08/28/25 21:35 Last Infusion: 08/28/25 21:49 Dose: Infused Lactated Ringer's (Lactated Ringers) 1,000 mls @ 999 mls/hr IV .Q1H1M [facility] Stop: 08/28/25 22:59 Last Infusion: 08/28/25 23:22 Dose: Infused Piperacillin/Tazobactam/Dextrose (Zosyn) 3.375 gm in 50 mls @ 12.5 mls/hr IV Q8HR [facility]; Protocol Stop: 09/04/25 06:14 Last Admin: 08/29/25 07:03 Dose: 12.5 mls/hr Piperacillin/Tazobactam/Dextrose (Zosyn) 3.375 gm in 50 mls @ 100 mls/hr IV X1 [facility]; Protocol Stop: 08/28/25 23:44 Last Infusion: 08/29/25 00:11 Dose: Infused
--- NOTE | 2025-08-29 21:41 | XR_ITS ---
EXAMINATION: Bilateral wrists 4 views TECHNIQUE: AP lateral right and left wrist total 4 views Date and time: August 29, 2025 2152 hours INDICATIONS: Patient fell today with injury to both wrist, bilateral wrist pain FINDINGS: No wrist fracture or dislocation Surgical clips palmar aspect of the left wrist IMPRESSION: No acute fracture
[2025-08-30] VITALS (12 sets, daily range): BP systolic 100–149; BP diastolic 69–90; PULSE 70–92; RESP 16–27; TEMP 36.1–37.3; O2SAT 90–98
--- NOTE | 2025-08-30 01:41 | PC.NURSE ---
Code star called. pt found by PHYSICIAN UNDERWRITER (Charlotte) after being alerted that tele box was not working. per Charlotte, she found the patient laying in bed naked with blood on his lips and a skin tear on his R hand 5th digit. alert initiated. pt alert oriented, and notified us that while walking to rest room, he had some weakness and fell. he then climbed back up to bed and layed down. per patient, he caught his fall with his right hand but does not know the origin of the bleeding on his lips. Denies hitting head. xray, vitals done
[2025-08-30] MEDS: RINGERS LACTATED 1000 ML 1,000 ML 75 ML IV ×2 (02:07→19:00)
[2025-08-30 05:18] LABS: Basophils # (Auto) 0.1 Thou/mm3 (0.0-0.2); Basophils % (Auto) 1 % (0-2.5); Eosinophils # (Auto) 0.1 Thou/mm3 (0.0-0.5); Eosinophils % (Auto) 1 % (0-10); Hematocrit 30.3 % (41.0-53.0); Hemoglobin 10.1 g/dL (13.5-16.0); Immature Granulocytes Auto 0.07 Thou/mm3 (0.00-0.00); Lymphocytes # (Auto) 1.6 Thou/mm3 (1.0-4.8); Lymphocytes % (Auto) 14 % (10-50); Mean Corpuscular HGB Conc 33.3 g/dl (31.0-37.0); Mean Corpuscular Hemoglobin 30.0 pg (25.0-35.0); Mean Corpuscular Volume 90 fL (80-100); Monocytes # (Auto) 1.6 Thou/mm3 (0.0-0.8); Monocytes % (Auto) 14 % (0-12); Neutrophils # (Auto) 7.9 Thou/mm3 (1.8-7.7); Neutrophils % (Auto) 70 % (37-80); Nucleated Red Blood Cell # 0.00 Thou/mm3 (0.00-0.00); Nucleated Red Blood Cell % 0 /100 WBC (0); Platelet Count 256 Thou/mm3 (140-440); RDW Standard Deviation 50.9 fL (35.1-43.9); Red Blood Count 3.37 Miln/mm3 (4.50-5.90); White Blood Count 11.4 Thou/mm3 (3.8-10.6)
[2025-08-30 05:39] LABS: Alanine Aminotransferase 23 U/L (10-49); Albumin, Serum 4.4 gm/dL (3.4-4.8); Albumin/Globulin Ratio 2.0 (1.2-2.2); Alkaline Phosphatase 97 U/L (46-116); Anion Gap 12 (7-16); Aspartate Amino Transferase 38 U/L (0-34); BUN/Creatinine Ratio 14 Ratio (12-20); Bilirubin,Total 1.1 mg/dL (0.3-1.2); Blood Urea Nitrogen 17 mg/dL (9-23); Calcium 9.6 mg/dL (8.3-10.6); Calcium (Corrected) 9.6 mg/dL (8.5-10.1); Carbon Dioxide 24.1 mMol/L (20.0-31.0); Chloride 100 mMol/L (98-107); Creatinine (Component) 1.2 mg/dL (0.6-1.3); Estimated Creatinine Clearance 73.5 mL/min (>60); Globulin 2.2 gm/dL (2.3-3.5); Glucose 138 mg/dL (74-106); Magnesium 1.8 mg/dL (1.6-2.6); Osmolality,Calculated 275 (275-295); Phosphorous 3.4 mg/dL (2.4-5.1); Potassium 4.0 mMol/L (3.4-5.1); Sodium 136 mMol/L (136-145); Total Protein 6.6 gm/dL (5.7-8.2); eGFR > 60 See Note
[2025-08-30] MEDS: PIPER/TAZO 3.375 GM PREMIX 3.375 GM/50 ML BAG IV (05:41)
[2025-08-30] MEDS: DOCUSATE SOD 100 MG CAPSULE PO (08:29)
[2025-08-30] MEDS: PANTOPRAZOLE 40 MG TABLET PO (08:29)
[2025-08-30] MEDS: AMIODARONE HCL 200 MG TABLET 100 MG PO (08:29)
[2025-08-30] MEDS: HEPARIN SOD INJ 5000 UNIT/ML VIAL SC ×2 (08:30→20:35)
--- NOTE | 2025-08-30 09:30 | PC.LAC ---
When rounding, observed patient standing in the doorway of his room. Pt is unsteady and asked to be assisted back to bed. [employer] is in the room, patient is alert and oriented, and refusing to have bed alarm on and to go back to bed. Pt is adamant that he has nothing wrong with him and will not be told what to do . Pt stated when my gets here she will raise hell, so we need to be prepared . Stayed with the Pt and provided therapeutic communication. MANAGER PROJECT MANAGEMENT came by and stayed with the Pt until he was ready to get back into bed.
--- NOTE | 2025-08-30 10:02 | ESPR_ITS ---
<Statement entered by Kosta Del Castillo MD - 09/04/25 15:21> I reviewed above note and agree with findings and plans. I have also personally examined the patient with medicine team and went over assessment and plan with medical team including legal intern and resident physician. <Statement entered by Re Klein MD - 08/30/25 22:23> Pt is seen at bedside, urine culture grew ESBL klebsiella which is sensitive zosyn and meropenem with multi drug resistance. Will consult ID for further recommendation regarding Oral options. Patient was seen and examined by me personally. I have directly supervised and reviewed documentation by the team resident and agree with its findings. ------- Plan of care was discussed with the attending, Dr. Abundio Klein, PGY-2 Documentation for date of: 08/30/25 Subjective Subjective Interval history: * Patient seen and examined at bedside * Patient growing Klebsiella ESBL in urine, contact cautions * Continuing Zosyn * ID consult Exam Vital Signs Temp Pulse Resp BP Pulse Ox O2 Del Method O2 Flow Rate 97.1 F 81 19 130/72 98 Room Air 3 08/30/25 08:00 08/30/25 08:30 08/30/25 08:00 08/30/25 08:30 08/30/25 08:00 08/30/25 08:00 08/30/25 00:05 Narrative Exam General: Awake and in no acute distress. Conversational and non-toxic appearing. Neurologic: GCS 15. Alert and oriented x3, no gross neurological deficit, and patient able to move all 4 extremities. HEENT: Normocephalic, atraumatic, mucous membranes moist. Pupils reactive to light. Heart: Regular rate and rhythm, normal S1 and S2, no murmurs. Lungs: Clear to auscultation bilaterally with no wheezing or crackles. Abdomen: Soft, nondistended, nontender, positive bowel sounds. No guarding or rebound tenderness. Extremities: No edema. 2+ radial and dorsalis pedis pulses bilaterally. Skin: Warm. Dry. No rash or ecchymoses. Urogenital: Nowak in place, draining cloudy urine. Objective Labs 08/30/25 04:49 08/30/25 04:49 Labs: Laboratory Results - last 24 hr 08/28/25 08/30/25 23:28 04:49 WBC 11.4 H RBC 3.37 L Hgb 10.1 L Hct 30.3 L MCV 90 MCH 30.0 MCHC 33.3 RDW Std Deviation 50.9 H Plt Count 256 Neut % (Auto) 70 Lymph % (Auto) 14 [place] % (Auto) 14 H Eos % (Auto) 1 Baso % (Auto) 1 Neut # (Auto) 7.9 H Lymph # (Auto) 1.6 [place] # (Auto) 1.6 H Eos # (Auto) 0.1 Baso # (Auto) 0.1 Immature Gran # (Auto) 0.07 H Absolute Nucleated RBC 0.00 Immature Gran % 1 H Nucleated RBC % 0 Sodium 136 Potassium 4.0 Chloride 100 Carbon Dioxide 24.1 Anion Gap 12 BUN 17 Creatinine 1.2 Estim Creat Clear Calc 73.5 eGFR > 60 BUN/Creatinine Ratio 14 Glucose 138 H Calculated Osmolality 275 Calcium 9.6 Corrected Calcium 9.6 Phosphorus 3.4 Magnesium 1.8 Total Bilirubin 1.1 AST 38 H ALT 23 Alkaline Phosphatase 97 Total Protein 6.6 Albumin 4.4 Globulin 2.2 L Albumin/Globulin Ratio 2.0 Coccidioides IgM Ab Negative Quality Measures Quality Measures sepsis Current suspected stage: ruled out Possible source: genitourinary Blood cultures ordered: yes Antibiotic ordered: Yes Advance care planning discussed with:: patient Assessment & Plan Assessment Current Active Medications: Generic Name Dose Route Start Last Admin Trade Name Freq PRN Reason Stop Dose Admin Acetaminophen 650 mg 08/28/25 21:47 08/29/25 23:30 Acetaminophen 325 Mg Tablet PO 09/27/25 21:46 650 mg Q6H PRN Administration Fever >100.4 or pain 1-3 Amiodarone HCl 100 mg 08/30/25 09:00 08/30/25 08:29 Amiodarone Hcl 200 Mg Tablet PO 09/29/25 08:59 100 mg QDAY BUNNY Administration Amlodipine Besylate 5 mg 08/29/25 20:30 08/30/25 08:30 Amlodipine Besylate 5 Mg Tablet PO 09/28/25 20:29 5 mg QDAY BUNNY Administration Dextrose 25 ml 08/28/25 21:52 Dextrose 50%-Water Inj 50 Ml Syringe IV 09/27/25 21:51 Q15MIN PRN BG 50-70 responsive npo pt Dextrose 50 ml 08/28/25 21:52 Dextrose 50%-Water Inj 50 Ml Syringe IV 09/27/25 21:51 Q15MIN PRN BG <50 OR BG <70 & pt unresponsive Docusate Sodium 100 mg 08/29/25 09:00 08/30/25 08:29 Docusate Sod 100 Mg Capsule PO 09/28/25 08:59 100 mg QDAY BUNNY Administration Protocol Glucagon 1 mg 08/28/25 21:52 Glucagon Inj 1 Mg Vial IM Q15MIN PRN BG <70, and no IV access Heparin Sodium (Porcine) 5,000 unit 08/29/25 09:00 08/30/25 08:30 Heparin Sod Inj 5000 Unit/Ml Vial SC 09/12/25 08:59 5,000 unit Q12HR BUNNY Administration Lactated Ringer's 1,000 mls @ 75 mls/hr 08/28/25 22:00 08/30/25 02:07 Lactated Ringers IV 09/27/25 21:59 75 mls/hr .[id number] BUNNY Administration Piperacillin/Tazobactam/Dextrose 3.375 gm in 50 mls @ 12.5 mls/hr 08/29/25 14:30 08/30/25 05:41 Zosyn IV 09/04/25 06:14 12.5 mls/hr Q8HR BUNNY Administration Protocol Magnesium Sulfate 2 gm in 50 mls @ 25 mls/hr 08/30/25 10:00 Magnesium Sulfate Ivpb IV 08/30/25 11:59 X1 ONE Insulin Human Lispro 0 unit 08/29/25 07:30 08/30/25 07:43 Insulin Lispro (Admelog) 1 Unit/0.01 Ml Unit SC 09/28/25 07:29 Not Given ACHS BUNNY Protocol Ondansetron HCl 4 mg 08/28/25 21:52 Ondansetron Inj 2 Mg/Ml Inj 2 Ml IVP 09/27/25 21:51 Q6H PRN NAUSEA OR VOMITING Protocol Pantoprazole Sodium 40 mg 08/29/25 09:00 08/30/25 08:29 Pantoprazole 40 Mg Tablet PO 09/28/25 08:59 40 mg QDAY BUNNY Administration Tamsulosin HCl 0.4 mg 08/29/25 20:30 08/29/25 23:22 Tamsulosin Hcl 0.4 Mg Capsule PO 09/28/25 20:29 Not Given On Hold: 08/29/25 20:39 QDAY [facility] Plan Summary: 70 year-old male with a history of prostate CA with mets (last chemo on 08/14/25), CAD s/p stent placement, AICD, DM, HTN BIB his presented to the ED on 08/28/2025 for a chief complaint of lower abdominal pain for the last 2 days. Patient was admitted for sepsis workup most likely 2/2 UTI. #Sepsis #UTI #Lactic acidosis (Resolved) #ESBL Klebsiella pneumonia UTI * Patient came in and found to have 2 or more SIRS criteria and was evaluated for sepsis. However, based upon further work-up, sepsis was ruled out * On admission HR 106 RR 24 T 102F, has since resolved to HR 86 RR 18 T 99F. Lactic acid 2.3 --> 1.2. AST 54. UA turbid protein +2 blood +3 RBC 145 WBC 1855 bacteria +4. * CTAP Mild cystitis pattern, perinephric stranding. * CXR showed early pneumonia left base, no crackles were heard on exam, PNA less likely. * Patient has hx of UTI from foely catheterization, patient requests no nowak. Patient denied dysuria, but endorsed incontinence and midline abdominal pain * Urine cultures grew ESBL Klebsiella pneumoniae * Blood cultures negative after 24 hours Plan: * FUP Cocci * Continue Zosyn 3.375g IV Q8HR (08/29 - * ID consult * IVF LR maintenance 75 mL/h #ZANDER (Resolved) * BUN 23 Cr 1.6, baseline 1.1. Most likely due to poor PO intake/volume depletion. * BUN 17, creatinine 1.2 on hospital day 2 #Concern for normal pressure hydrocephalus * Patient had a wide based gait per his , incontinence, and at times can be intermittently confusing. These symptoms have all been for a few months. Plan: * Follow-up MRI, screening due to AICD #Hx of DM insulin dependent * 30 units of lantus at home with 2000mg of metformin Plan: * ISS step 2 * ACHS glucose checks #Hx of stage IV prostate cancer #mets to liver and coccyx * Received 4/6 doses of chemotherapy so far. Diagnosed in April 2025. Patient not reporting any pain at the time. Care is based in [place]. Plan: * CTM for pain #Primary hypertension * Patient taking home losartan, unsure of dose. Plan: * Restarted home amlodipine 100 mg p.o. daily #Hx of CAD s/p stent #AICD * Patient no longer taking aspirin, and unable to tolerate statins due to muscle pains. * Plan: * Obtain daily weights * Strict I/Os Health Maintenance: Code status: Full DVT prophylaxis: Heparin subq GI prophylaxis: Diet: Carb consistent low [place]: Present Lines: PIV Supplemental O2: NC Disposition: Tele, urine positive for ESBL Klebsiella pneumoniae, treated with Zosyn, pending ID consult. Patient was seen and discussed with my attending physician Dr. Abundio EPPERSON and my senior resident Dr. Ernie EPPERSON PGY-2. Jeremy López DO PGY-1.
[2025-08-30] MEDS: Magnesium Sulfate 2 GM Ivpb 2 GM/50 ML BAG IV (10:13)
--- NOTE | 2025-08-30 13:49 | PD.IDPROG ---
Subjective Subjective Interval history: pyuria w/o obstruction by ct. bc neg at nearly 48h. Exam Vital Signs Temp Pulse Resp BP Pulse Ox O2 Del Method O2 Flow Rate 97.9 F 83 19 149/80 H 95 Room Air 3 08/30/25 12:00 08/30/25 12:00 08/30/25 12:00 08/30/25 12:00 08/30/25 12:00 08/30/25 12:00 08/30/25 00:05 Narrative Exam if bc stay neg then po fosfomycin 3 gm x1 ok tomorrow then home Objective - Internal Medicine Labs 08/30/25 04:49 08/30/25 04:49 Labs: Laboratory Results - last 24 hr 08/28/25 08/30/25 23:28 04:49 WBC 11.4 H RBC 3.37 L Hgb 10.1 L Hct 30.3 L MCV 90 MCH 30.0 MCHC 33.3 RDW Std Deviation 50.9 H Plt Count 256 Neut % (Auto) 70 Lymph % (Auto) 14 [place] % (Auto) 14 H Eos % (Auto) 1 Baso % (Auto) 1 Neut # (Auto) 7.9 H Lymph # (Auto) 1.6 [place] # (Auto) 1.6 H Eos # (Auto) 0.1 Baso # (Auto) 0.1 Immature Gran # (Auto) 0.07 H Absolute Nucleated RBC 0.00 Immature Gran % 1 H Nucleated RBC % 0 Sodium 136 Potassium 4.0 Chloride 100 Carbon Dioxide 24.1 Anion Gap 12 BUN 17 Creatinine 1.2 Estim Creat Clear Calc 73.5 eGFR > 60 BUN/Creatinine Ratio 14 Glucose 138 H Calculated Osmolality 275 Calcium 9.6 Corrected Calcium 9.6 Phosphorus 3.4 Magnesium 1.8 Total Bilirubin 1.1 AST 38 H ALT 23 Alkaline Phosphatase 97 Total Protein 6.6 Albumin 4.4 Globulin 2.2 L Albumin/Globulin Ratio 2.0 Coccidioides IgM Ab Negative Assessment & Plan A&P Narrative uti w/o obstruction by ct scan this admit hx of aicd and possibly other cardiac procedures hx of prostate ca dm II, a1c 7.2 noted changed to single dose fosfomycin . ok to go back to iv if bc pos for gnr. control dm will see next week if bc become pos for a likely pathogen Time Spent With Patient Time: Total time spent is greater than 50% in coordination of care (as documented) at patient's floor/unit and/or counseling patient:
--- NOTE | 2025-08-30 13:54 | XR_ITS ---
Examination: Retroperitoneal ultrasound, complete Technique: Multiple high resolution grayscale images of the retroperitoneum obtained, including kidneys and bladder. Exam date and time: August 30, 2025, 1528 hours INDICATIONS: Flank pain months FINDINGS: Right kidney 14.9 cm cortex 2.1 cm Multiple cysts, the largest in the lower pole 4.7 cm Left kidney 13.8 cm renal cortex 2.8 cm Mild renal scarring, no hydronephrosis Bladder contracted around a Avelar catheter IMPRESSION: Mild renal scarring, no hydronephrosis
--- NOTE | 2025-08-30 14:44 | ESCONSULT_ITS ---
RE: JANNET HU : 1955 DATE OF CONSULTATION: 08/30/2025 REFERRING PHYSICIAN: hospitalist team REASON FOR CONSULTATION: UTI with ESBL E. coli. HISTORY OF PRESENT ILLNESS: Patient is a 70-year-old man who is still febrile as of this a.m. He has only been in the hospital a little over a day and a half. He will hit 48 hours on tonight at 21:47 p.m. I am going to go ahead to take the liberty of changing him from Zosyn to fosfomycin as a single dose for his UTI because he has not been on it before. He notes his only problems are some prostate cancer which was diagnosed in May and a recent fever. He is also very hard of hearing and has some heart disease. PAST SURGICAL HISTORY: Includes prior CABG, stenting, and pacemaker, prior TURP that was a couple months ago. ALLERGIES: NONE NOTED. IMMUNIZATIONS: Last tetanus is not known. He did take his flu shot some years but not every year. He has had 2 COVID vaccines. Has not had pneumococcal vaccination. FAMILY HISTORY: Positive for his grandfather having cancer, but he does not know what type. SOCIAL HISTORY: He lives at home with his . They are no smokers in the home. PHYSICAL EXAMINATION: GENERAL: Patient is well-appearing, is accompanied by his who answers most of the questions for him on his behalf. HEENT: Benign. HEART: Benign. LUNGS: Benign. ABDOMEN: Benign. Laboratory is noted. So far the blood cultures are negative, so there is no point giving him IV treatment. If they turn positive, I may be able to see him again on Thursday, but if he goes home before then, I have no objection. If they are negative by tomorrow, he can probably go home tomorrow. Fosfomycin is ordered for tomorrow. DT: 14:34:36 TT: 14:43:00 Ref: [id number] - TID: [id number] MTDD
--- NOTE | 2025-08-30 15:58 | PC.SS ---
Rounding Note: ID consulting for antibiotic recommendations.
--- NOTE | 2025-08-30 19:10 | PC.NURSE ---
this morning when going to do assessment on pt , he began to get very restless, attempted to use therapeutic communication to help educate pt on his safety , pt did not respond well to teaching and was being non compliant with staying in bed , let the charge nurse know about this situation and we moved pt closer to nurses station for safety precautions.
[2025-08-30] MEDS: ACETAMINOPHEN 325 MG TABLET 650 MG PO (20:44)
[2025-08-31] VITALS: BP 115/71; PULSE 80; RESP 25; TEMP 36.1; O2SAT 96
[2025-08-31 04:00] VITALS: BP 103/57; PULSE 67; PULSE 81; RESP 12; TEMP 36.3; O2SAT 96
[2025-08-31 05:36] VITALS: BMI 29.5
[2025-08-31 05:40] LABS: Basophils # (Auto) 0.1 Thou/mm3 (0.0-0.2); Basophils % (Auto) 1 % (0-2.5); Eosinophils # (Auto) 0.1 Thou/mm3 (0.0-0.5); Eosinophils % (Auto) 1 % (0-10); Hematocrit 30.2 % (41.0-53.0); Hemoglobin 9.8 g/dL (13.5-16.0); Immature Granulocytes Auto 0.05 Thou/mm3 (0.00-0.00); Lymphocytes # (Auto) 1.5 Thou/mm3 (1.0-4.8); Lymphocytes % (Auto) 17 % (10-50); Mean Corpuscular HGB Conc 32.5 g/dl (31.0-37.0); Mean Corpuscular Hemoglobin 29.6 pg (25.0-35.0); Mean Corpuscular Volume 91 fL (80-100); Monocytes # (Auto) 1.0 Thou/mm3 (0.0-0.8); Monocytes % (Auto) 11 % (0-12); Neutrophils # (Auto) 6.4 Thou/mm3 (1.8-7.7); Neutrophils % (Auto) 70 % (37-80); Nucleated Red Blood Cell # 0.00 Thou/mm3 (0.00-0.00); Nucleated Red Blood Cell % 0 /100 WBC (0); Platelet Count 253 Thou/mm3 (140-440); RDW Standard Deviation 51.3 fL (35.1-43.9); Red Blood Count 3.31 Miln/mm3 (4.50-5.90); White Blood Count 9.2 Thou/mm3 (3.8-10.6)
[2025-08-31 06:11] LABS: Alanine Aminotransferase 30 U/L (10-49); Albumin, Serum 4.3 gm/dL (3.4-4.8); Albumin/Globulin Ratio 2.0 (1.2-2.2); Alkaline Phosphatase 105 U/L (46-116); Anion Gap 10 (7-16); Aspartate Amino Transferase 43 U/L (0-34); BUN/Creatinine Ratio 16 Ratio (12-20); Bilirubin,Total 0.6 mg/dL (0.3-1.2); Blood Urea Nitrogen 18 mg/dL (9-23); Calcium 9.4 mg/dL (8.3-10.6); Calcium (Corrected) 9.4 mg/dL (8.5-10.1); Carbon Dioxide 27.9 mMol/L (20.0-31.0); Chloride 101 mMol/L (98-107); Creatinine (Component) 1.1 mg/dL (0.6-1.3); Estimated Creatinine Clearance 80.4 mL/min (>60); Globulin 2.2 gm/dL (2.3-3.5); Glucose 133 mg/dL (74-106); Magnesium 2.2 mg/dL (1.6-2.6); Osmolality,Calculated 281 (275-295); Phosphorous 3.8 mg/dL (2.4-5.1); Potassium 3.9 mMol/L (3.4-5.1); Sodium 139 mMol/L (136-145); Total Protein 6.5 gm/dL (5.7-8.2); eGFR > 60 See Note
[2025-08-31 06:41] VITALS: PULSE 78; RESP 18; O2SAT 92
[2025-08-31 08:00] VITALS: BP 127/70; PULSE 74; RESP 22; TEMP 36.6; O2SAT 91
[2025-08-31 09:22] VITALS: BP 127/70; PULSE 74
[2025-08-31] MEDS: HEPARIN SOD INJ 5000 UNIT/ML VIAL SC (09:22)
[2025-08-31] MEDS: DOCUSATE SOD 100 MG CAPSULE PO (09:22)
[2025-08-31] MEDS: AMIODARONE HCL 200 MG TABLET 100 MG PO (09:22)
[2025-08-31] MEDS: RINGERS LACTATED 1000 ML 1,000 ML 75 ML IV (09:22)
[2025-08-31] MEDS: PANTOPRAZOLE 40 MG TABLET PO (09:22)
[2025-08-31] MEDS: FOSFOMYCIN PWD 3 GM PACKET (NON-FORMULARY) PO (09:24)
--- NOTE | 2025-08-31 10:07 | PD.RESPRO ---
Documentation for date of: 08/31/25 Exam Vital Signs Temp Pulse Resp BP Pulse Ox O2 Del Method O2 Flow Rate 97.8 F 74 22 H 127/70 91 L Nasal Cannula 2 08/31/25 08:00 08/31/25 09:22 08/31/25 08:00 08/31/25 09:22 08/31/25 08:00 08/31/25 08:00 08/31/25 08:00 Objective Labs 08/31/25 05:00 08/31/25 05:00 Labs: Laboratory Results - last 24 hr 08/31/25 05:00 WBC 9.2 RBC 3.31 L Hgb 9.8 L Hct 30.2 L MCV 91 MCH 29.6 MCHC 32.5 RDW Std Deviation 51.3 H Plt Count 253 Neut % (Auto) 70 Lymph % (Auto) 17 [place] % (Auto) 11 Eos % (Auto) 1 Baso % (Auto) 1 Neut # (Auto) 6.4 Lymph # (Auto) 1.5 [place] # (Auto) 1.0 H Eos # (Auto) 0.1 Baso # (Auto) 0.1 Immature Gran # (Auto) 0.05 H Absolute Nucleated RBC 0.00 Immature Gran % 1 H Nucleated RBC % 0 Sodium 139 Potassium 3.9 Chloride 101 Carbon Dioxide 27.9 Anion Gap 10 BUN 18 Creatinine 1.1 Estim Creat Clear Calc 80.4 eGFR > 60 BUN/Creatinine Ratio 16 Glucose 133 H Calculated Osmolality 281 Calcium 9.4 Corrected Calcium 9.4 Phosphorus 3.8 Magnesium 2.2 Total Bilirubin 0.6 D AST 43 H ALT 30 Alkaline Phosphatase 105 Total Protein 6.5 Albumin 4.3 Globulin 2.2 L Albumin/Globulin Ratio 2.0 Quality Measures Quality Measures sepsis Possible source: genitourinary Blood cultures ordered: yes Assessment & Plan Assessment Current Active Medications: Generic Name Dose Route Start Last Admin Trade Name Freq PRN Reason Stop Dose Admin Acetaminophen 650 mg 08/28/25 21:47 08/30/25 20:44 Acetaminophen 325 Mg Tablet PO 09/27/25 21:46 650 mg Q6H PRN Administration Fever >100.4 or pain 1-3 Amiodarone HCl 100 mg 08/30/25 09:00 08/31/25 09:22 Amiodarone Hcl 200 Mg Tablet PO 09/29/25 08:59 100 mg QDAY BUNNY Administration Amlodipine Besylate 5 mg 08/29/25 20:30 08/31/25 09:22 Amlodipine Besylate 5 Mg Tablet PO 09/28/25 20:29 5 mg QDAY BUNNY Administration Dextrose 25 ml 08/28/25 21:52 Dextrose 50%-Water Inj 50 Ml Syringe IV 09/27/25 21:51 Q15MIN PRN BG 50-70 responsive npo pt Dextrose 50 ml 08/28/25 21:52 Dextrose 50%-Water Inj 50 Ml Syringe IV 09/27/25 21:51 Q15MIN PRN BG <50 OR BG <70 & pt unresponsive Docusate Sodium 100 mg 08/29/25 09:00 08/31/25 09:22 Docusate Sod 100 Mg Capsule PO 09/28/25 08:59 100 mg QDAY BUNNY Administration Protocol Fosfomycin Tromethamine 3 gm 08/31/25 09:00 08/31/25 09:24 Fosfomycin Pwd 3 Gm Packet (Non-Formulary) PO 08/31/25 12:00 3 gm DAILY BUNNY Administration Glucagon 1 mg 08/28/25 21:52 Glucagon Inj 1 Mg Vial IM Q15MIN PRN BG <70, and no IV access Heparin Sodium (Porcine) 5,000 unit 08/29/25 09:00 08/31/25 09:22 Heparin Sod Inj 5000 Unit/Ml Vial SC 09/12/25 08:59 5,000 unit Q12HR BUNNY Administration Lactated Ringer's 1,000 mls @ 75 mls/hr 08/28/25 22:00 08/31/25 09:22 Lactated Ringers IV 09/27/25 21:59 75 mls/hr .[id number] BUNNY Administration Insulin Human Lispro 0 unit 08/29/25 07:30 08/31/25 09:14 Insulin Lispro (Admelog) 1 Unit/0.01 Ml Unit SC 09/28/25 07:29 Not Given ACHS BUNNY Protocol Ondansetron HCl 4 mg 08/28/25 21:52 Ondansetron Inj 2 Mg/Ml Inj 2 Ml IVP 09/27/25 21:51 Q6H PRN NAUSEA OR VOMITING Protocol Pantoprazole Sodium 40 mg 08/29/25 09:00 08/31/25 09:22 Pantoprazole 40 Mg Tablet PO 09/28/25 08:59 40 mg QDAY BUNNY Administration Tamsulosin HCl 0.4 mg 08/29/25 20:30 08/29/25 23:22 Tamsulosin Hcl 0.4 Mg Capsule PO 09/28/25 20:29 Not Given On Hold: 08/29/25 20:39 QDAY BUNNY
[2025-08-31 10:16] LABS: Cocci Serology, IgG Negative (Negative)
--- NOTE | 2025-08-31 10:34 | PC.NURSE ---
Pts o2 sats dropped to 88% while at rest on room air.
--- NOTE | 2025-08-31 11:14 | PC.SS ---
Patient wants to leave and go home. Patient appears to need 02. SS submitted nurse's notes to [facility] for review. Pending diagnosis to justify the 02 needs. [facility] [place] will notify with response.
[2025-08-31 12:00] VITALS: BP 135/76; PULSE 67; RESP 20; TEMP 36.2; O2SAT 98
--- NOTE | 2025-08-31 14:59 | ESDS_ITS ---
<Statement entered by Kosta Del Castillo MD - 09/12/25 08:30> I reviewed above note and agree with findings and plans. I have also personally examined the patient with medicine team and went over assessment and plan with medical team including rn international and resident physician. Planned Discharge Date 08/31/25 DS: Providers Provider Date of admission: 08/28/25 21:47 Primary care physician: Physician No Primary/Family Admitting Provider: Ector Dias MD Attending Provider on Admission: Kosta Del Castillo MD Consults: 08/28/25 21:55 Referral Physical Therapy Routine Comment: Physician Instructions: 08/30/25 10:51 Consult to Infectious Diseases Routine Comment: ESBL Klebsiella UTI Consulting Provider: Davis Nichole Attending Provider on DC: Kosta Del Castillo MD Discharging Provider: Jeremy López DO DS: Diagnosis Discharge Diagnosis (1) Acute UTI: Status: Acute Problem List Completed Was Problem List Reviewed/Reconciled?: Yes Hospital Course Hospital Course Hospital course: Hospital Course: 70yo male with a history of prostate CA with mets (last chemo on 08/14/25), CAD s/p stent placement, AICD, DM, HTN BIB his presented to the ED on 08/28/2025 for a chief complaint of lower abdominal pain for the last 2 days. Heart rate was 106, respiratory rate 24, temp 102, white count 11.4.? Patient met 3 out of 4 SIRS criteria. ?Urinalysis showed turbidity, protein +2, blood +3, RBC 145, WBC 1855, and bacteria +4 He was admitted for sepsis workup most likely 2/2 UTI and started on Zosyn and IV fluid maintenance. The patient's WBC count resolved after admission and his fever, tachypnea, and tachycardia improved follow-up urine culture showed Klebsiella pneumonia ?ESBL UTI. ?Blood cultures were negative after 48 hours. Infectious disease was consulted and the patient was switched to a single dose of oral fosfomycin which was administered the day of discharge. Patient was stable for discharge. Problem List: #Sepsis #UTI #Lactic acidosis (Resolved) #ESBL Klebsiella pneumonia UTI #ZANDER (Resolved) #Concern for normal pressure hydrocephalus #Hx of DM insulin dependent #Hx of stage IV prostate cancer #Mets to liver and coccyx #Primary hypertension #Hx of CAD s/p stent #AICD Instructions: * Stop taking your losartan 100 mg tablet * Continue taking all other home medications as prescribed * Follow-up with PCP within 1-2 weeks of discharge * If you do not have a PCP, then you can follow-up at the [facility] * Return to the emergency room if symptoms worsen The patient was seen and discussed with my attending physician Dr. Abundio EPPERSON. Jereym López DO PGY-1 Time Spent with Patient Time attestation: Total time spent providing and/or coordinating discharge services: More than 50% Time spent: Greater than 30 minutes Exam Vital Signs Temp Pulse Resp BP Pulse Ox O2 Del Method O2 Flow Rate 97.2 F 67 20 135/76 H 98 Room Air 2 08/31/25 12:00 08/31/25 12:00 08/31/25 12:00 08/31/25 12:00 08/31/25 12:00 08/31/25 12:00 08/31/25 08:00 Narrative Exam General: Awake and in no acute distress. Conversational and non-toxic appearing. Neurologic: GCS 15. Alert and oriented x3, no gross neurological deficit, and patient able to move all 4 extremities. HEENT: Normocephalic, atraumatic, mucous membranes moist. Pupils reactive to light. Heart: Regular rate and rhythm, normal S1 and S2, no murmurs. Lungs: Clear to auscultation bilaterally with no wheezing or crackles. Abdomen: Soft, nondistended, nontender, positive bowel sounds. No guarding or rebound tenderness. Extremities: No edema. 2+ radial and dorsalis pedis pulses bilaterally. Skin: Warm. Dry. No rash or ecchymoses. Urogenital: Avelar in place, draining yellow urine. Discharge Plan Plan Patient Disposition: HOME (Self Care) Patient condition on transfer: Stable Care Plan Goals: Instructions: * Stop taking your losartan 100 mg tablet * Continue taking all other home medications as prescribed * Follow-up with PCP within 1-2 weeks of discharge * If you do not have a PCP, then you can follow-up at the [facility] * Return to the emergency room if symptoms worsen Prescriptions/Referrals Prescriptions/Med Rec: Continued insulin glargine [Lantus U-100 Insulin] 100 unit/mL solution 30 unit subcut QDAY ABIRATERONE 1,000 mg PO .AM Patient Comments: IN THE MORNING ON AN EMPTY STOMACH bicalutamide 50 mg tablet 50 mg PO QDAY amlodipine 5 mg tablet 5 mg PO QDAY allopurinol 100 mg tablet 100 mg PO QDAY pantoprazole 20 mg tablet,delayed release (DR/EC) 20 mg PO QAM tamsulosin 0.4 mg capsule 0.4 mg PO QDAY amiodarone 100 mg tablet 100 mg PO QDAY METFORMIN ER 500 mg PO BID Discontinued losartan 100 mg tablet 100 mg PO QDAY Referrals: No Primary/Family,Physician [Primary Care Provider] Patient/Caregiver Discharge Instructions Education Materials: Urinary Tract Infections in Men, Using an Oxygen Tank at Home Print Language: Pashto Stand Alone Forms: Sarah Award Info., Patient Portal Info Letter Discharge Order Discharge Orders: Discharge (Routine); Ordered 08/31/25 Ordered By: Julisa Diez Quality Discharge Quality Measures none
== END 2025-08-31 13:24 | disposition home or self-care (01) | DRG 690 ==
LOC: SERX 21:18 → SERHOLD 22:03 → S2NX 08-29 00:29
PROVIDERS: Physician Assistant; Admitting Provider Internal Medicine; Emergency Provider Emergency Medicine; Visit Provider Internal Medicine
DX: N39.0 Urinary tract infection, site not specified (principal); E87.20 Acidosis, unspecified; N17.9 Acute kidney failure, unspecified; C78.7 Secondary malignant neoplasm of liver and intrahepatic bile duct; Z16.12 Extended spectrum beta lactamase (ESBL) resistance; Z16.24 Resistance to multiple antibiotics; C61 Malignant neoplasm of prostate; E11.9 Type 2 diabetes mellitus without complications; H91.90 Unspecified hearing loss, unspecified ear; B96.20 Unspecified Escherichia coli [E. coli] as the cause of diseases classified elsewhere; M10.9 Gout, unspecified; B96.1 Klebsiella pneumoniae [K. pneumoniae] as the cause of diseases classified elsewhere; I10 Essential (primary) hypertension; I25.10 Atherosclerotic heart disease of native coronary artery without angina pectoris; Z95.5 Presence of coronary angioplasty implant and graft; Z79.4 Long term (current) use of insulin; Z79.84 Long term (current) use of oral hypoglycemic drugs; Z85.46 Personal history of malignant neoplasm of prostate; Z87.440 Personal history of urinary (tract) infections; Z95.810 Presence of automatic (implantable) cardiac defibrillator; Z88.8 Allergy status to other drugs, medicaments and biological substances
CPT/HCPCS: 36415; 70450; 71045; 73100; 73140; 74177; 76770; 80053; 81001; 83605; 83735; 84100; 84145; 85025; 85610; 85730; 86331; 86635; 87040; 87077; 87086; 87186; 87502; 87635; 93005; 96361; 96365; 97161; 99284; A4649; J0696; J1200; J1644; J2543; J3475; J7030; J7120; Q9967; A9270